=== PATIENT | male | born 1980 | race Caucasian/White ===

== ENCOUNTER 2016-09-28 16:23 | Emergency (ER) | payer OTHER ==
[2016-09-28 16:39] VITALS: BP 161/83; PULSE 88; RESP 20; TEMP 98.5
--- NOTE | 2016-09-28 17:08 | ED ---
Skin/Abscess/FB HPI - General Chief complaint: Skin/Abscess/Foreign Body Stated complaint: Lump on Left Leg Time Seen by Provider: 09/28/16 16:55 Source: patient, RN notes reviewed Mode of arrival: ambulatory Limitations: no limitations - History of Present Illness Initial comments: 35-year-old male presents emergency department chief complaint of lesion to the left back. Patient noticed a area of a lump to the left buttock area. Patient states he had it for the last week or so. Patient states his doctor placed him on Keflex and did not improve warm. Patient states is not tender is notredness. Patient seen changes in bowel or bladder habits. Patient states she was concerned due to the above results that he should be evaluated.Patient denies any recent fever, chills, shortness of breath, chest pain, back pain, abdominal pain, nausea vomiting, numbness or tingling, dysuria or hematuria, constipation or diarrhea, headaches or visual changes, or any other current symptoms. - Related Data Previous Rx's Medication Instructions Recorded Meclizine [Antivert] 25 mg PO TID #15 tab 04/21/15 Allergies Allergy/AdvReac Type Severity Reaction Status Date / Time codeine Allergy Rash/Hives Verified 09/28/16 16:39 Review of Systems ROS Statement: Those systems with pertinent positive or pertinent negative responses have been documented in the HPI. ROS Other: All systems not noted in ROS Statement are negative. Past Medical History Past Medical History: No Reported History History of Any Multi-Drug Resistant Organisms: None Reported Past Surgical History: No Surgical Hx Reported Past Psychological History: No Psychological Hx Reported Smoking Status: Current every day smoker Past Alcohol Use History: Occasional Past Drug Use History: None Reported General Exam Limitations: no limitations General appearance: alert, in no apparent distress Head exam: Present: atraumatic, normocephalic, normal inspection ENT exam: Present: normal exam, mucous membranes moist Neck exam: Present: normal inspection. Absent: tenderness, meningismus, lymphadenopathy Respiratory exam: Present: normal lung sounds bilaterally. Absent: respiratory distress, wheezes, rales, rhonchi, stridor Cardiovascular Exam: Present: regular rate, normal rhythm, normal heart sounds. Absent: systolic murmur, diastolic murmur, rubs, gallop, clicks GI/Abdominal exam: Present: soft, normal bowel sounds. Absent: distended, tenderness, guarding, rebound, rigid Extremities exam: Present: normal inspection, full ROM, normal capillary refill , other (There is no palpable mass left buttock that is in minimal in nature). Absent: tenderness, pedal edema, joint swelling, calf tenderness Back exam: Present: normal inspection Neurological exam: Present: alert, oriented X3 Psychiatric exam: Present: normal affect, normal mood Skin exam: Present: warm, dry, intact, normal color. Absent: rash Course Vital Signs 09/28/16 16:37 Temperature 98.5 F Pulse Rate 88 Respiratory 20 Rate Blood Pressure 161/83 O2 Sat by Pulse 98 Oximetry Medical Decision Making - Medical Decision Making 35-year-old male presents emergency department with a chief complaint of concern for lesion of the left buttock. At this time ultrasound shows that it is a lymph node. This time we discussed continuing to just follow-up. We discussed he can take Motrin 4. We did discuss return All patient's questions. He stated he understood and is intermittent plan. He will be discharged. Disposition Clinical Impression: Lymph node symptom Disposition: HOME SELF-CARE Condition: Stable Instructions: Lymphadenopathy (ED) Additional Instructions: Please use medication as discussed. Please follow up with family doctor if symptoms have not improved over the next two days. Please return to the emergency room if your symptoms increase or worsen or for any other concerns. Referrals: Manda Gordillo MD [Primary Care Provider] - 1-2 days Time of Disposition: 17:41
--- NOTE | 2016-09-28 17:37 | US ---
EXAMINATION TYPE: US extremity nonvasc complt LT DATE OF EXAM: 09/28/2016 5:23 PM COMPARISON: NONE CLINICAL HISTORY: Pain. Palpable area left lower buttock x 1 month Scanned patient's palpable area: 1.4 x 0.6 x 1.9cm hypoechoic vascular area, possible lymph node IMPRESSION: There is a oval-shaped subcutaneous mass that has sonographic features suggestive of ord inary lymph node.
== END 2016-09-28 17:51 | disposition home or self-care (01) ==
LOC: EC 16:23
DX: I89.9 Noninfective disorder of lymphatic vessels and lymph nodes, unspecified (principal); R22.42 Localized swelling, mass and lump, left lower limb; F17.200 Nicotine dependence, unspecified, uncomplicated; Z88.5 Allergy status to narcotic agent
CPT/HCPCS: 99283

== ENCOUNTER 2018-02-01 15:51 | Emergency (ER) | payer OTHER ==
[2018-02-01 15:59] VITALS: RESP 18
--- NOTE | 2018-02-01 16:14 | ED ---
General Adult HPI - General Chief complaint: Urogenital Stated complaint: Male Time Seen by Provider: 02/01/18 16:01 Source: patient, RN notes reviewed Mode of arrival: ambulatory Limitations: no limitations - History of Present Illness Initial comments: Patient is a pleasant 37-year-old male presenting to the emergency department with right testicular swelling. Patient has had symptoms for over a month now. Symptoms are somewhat worse the last day or 2. Patient does have a history of similar symptoms years ago associated with hydrocele. Patient states there is only mild discomfort, specifically more with touch or movement. No trauma. No urethral discharge. No fevers. - Related Data Home Medications Medication Instructions Recorded Confirmed Multivitamins, Thera [Multivitamin 1 tab PO DAILY 02/01/18 02/01/18 (formulary)] Allergies Allergy/AdvReac Type Severity Reaction Status Date / Time codeine Allergy Itching Verified 02/01/18 16:18 Review of Systems ROS Statement: Those systems with pertinent positive or pertinent negative responses have been documented in the HPI. ROS Other: All systems not noted in ROS Statement are negative. Constitutional: Denies: fever Eyes: Denies: eye pain ENT: Denies: ear pain Respiratory: Denies: dyspnea Cardiovascular: Denies: chest pain Endocrine: Denies: fatigue Gastrointestinal: Denies: abdominal pain Genitourinary: Reports: as per HPI, other (Testicular swelling). Denies: urgency, dysuria, discharge Skin: Denies: rash Neurological: Denies: headache Past Medical History Past Medical History: No Reported History Additional Past Medical History / Comment(s): vertigo History of Any Multi-Drug Resistant Organisms: None Reported Past Surgical History: No Surgical Hx Reported Past Psychological History: No Psychological Hx Reported Smoking Status: Current every day smoker Past Alcohol Use History: Occasional Past Drug Use History: None Reported General Exam Limitations: no limitations General appearance: alert, in no apparent distress Head exam: Present: atraumatic Neck exam: Present: normal inspection Respiratory exam: Present: normal lung sounds bilaterally Cardiovascular Exam: Present: regular rate, normal rhythm GI/Abdominal exam: Present: soft. Absent: tenderness exam: Present: scrotal swelling (Right testicular). Absent: testicular tenderness, urethral discharge Extremities exam: Present: normal inspection Neurological exam: Present: alert Psychiatric exam: Present: normal affect, normal mood Skin exam: Present: normal color. Absent: rash Course Vital Signs 02/01/18 15:54 Temperature 98.3 F Pulse Rate 92 Respiratory 18 Rate Blood Pressure 128/89 O2 Sat by Pulse 98 Oximetry Medical Decision Making - Medical Decision Making Patient reevaluated and resting comfortably in bed. Patient updated on results and need for follow-up. - Radiology Data Radiology results: report reviewed (Ultrasound shows large bilateral hydrocele, more on the right side) Disposition Clinical Impression: Hydrocele Disposition: HOME SELF-CARE Condition: Stable Instructions: Hydrocele (ED), Testicle Pain (ED) Additional Instructions: Please follow-up with primary care physician and urology in the next couple days for recheck. Return for fever, increased pain, swelling, redness, worsening symptoms or other concerns. Subp-kio-[id number] ibuprofen as needed. Scrotal support. Is patient prescribed a controlled substance at d/c from ED?: No Referrals: Luis M Ny MD [STAFF PHYSICIAN] - 1-2 days Grace Barnes III, MD [STAFF PHYSICIAN] - 1-2 days Time of Disposition: 17:43
--- NOTE | 2018-02-01 17:27 | US ---
EXAMINATION TYPE: US scrotum with doppler. Grayscale and color Doppler Duplex imaging performed of triny angel scrotum. DATE OF EXAM: 02/01/2018 COMPARISON: NONE CLINICAL HISTORY: Pain. EXAM MEASUREMENTS: TESTICLES: Right Testicle: 4.1 x 2.9 x 2.7 cm Left Testicle: 4.0 x 2.8 x 2.7 cm EPIDIDYMIS HEAD: Right Epididymis: 0.8 cm Left Epididymis: 0.9 cm Doppler performed to assess for testicular vascularity; good bilateral color flow and waveforms are s een. There is no evidence of testicular torsion. Presence of hydroceles: Large bilateral hydroceles right measures 8.1 x 3.5 x 5.0, left measures 7.8 x 2.9 x3.6cm Presence of varicoceles: ?mild dilation on left IMPRESSION: No testicular torsion or mass. Large bilateral hydroceles.
[2018-02-01 17:59] VITALS: BP 145/85; PULSE 75; TEMP 98.8
== END 2018-02-01 17:45 | disposition home or self-care (01) ==
LOC: EC 15:51
DX: N43.3 Hydrocele, unspecified (principal); F17.200 Nicotine dependence, unspecified, uncomplicated; Z88.5 Allergy status to narcotic agent
CPT/HCPCS: 76870; 93975; 99284

== ENCOUNTER → 2018-09-09 | Outpatient (CLI) | payer BC ==
--- NOTE | 2018-09-09 08:46 | US ---
EXAMINATION TYPE: US abdomen complete DATE OF EXAM: 09/09/2018 COMPARISON: NONE CLINICAL HISTORY: K21.9 Gastro-esophageal reflux disease without es. epigastric pain EXAM MEASUREMENTS: Liver Length: 14.5 cm Gallbladder Wall: 0.3 cm CBD: 0.4 cm Spleen: 11.4 cm Right Kidney: 9.4 x 5.2 x 5.2 cm Left Kidney: 10.4 x 4.9 x 5.5 cm Pancreas: not seen due to bowel gas Liver: left lobe obscured by bowel gas Gallbladder: wnl Evidence for sonographic Ugalde's sign: no CBD: wnl Spleen: wnl Right Kidney: wnl Left Kidney: wnl Upper IVC: wnl Abd Aorta: wnl The liver is homogenous. The intrahepatic portion of the IVC and proximal abdominal aorta are within normal limits. There is no evidence of cholelithiasis. Common bile duct is unremarkable. The visu alized portions of the pancreas are homogenous. The spleen is unremarkable. Kidneys are symmetric a nd free of hydronephrosis. No renal lesions are seen. IMPRESSION: 1. No distinct abnormality seen.
== END | disposition home or self-care (01) ==
LOC: RADUSWWP 08:15
PROVIDERS: ATTEND Family Medicine
DX: K21.9 Gastro-esophageal reflux disease without esophagitis (principal)
CPT/HCPCS: 76700

== ENCOUNTER 2019-06-26 16:07 | Emergency (ER) | payer BC ==
[2019-06-26 16:32] VITALS: BP 116/77; PULSE 85; RESP 18; TEMP 98.2
[2019-06-26] MEDS ORDERED: MAG HYDROX/AL HYDROX/SIMETH 30 ML, HYOSCYAMINE ELIXIR 10 ML, LIDOCAINE VISCOUS 2% 10 ML PO STA ×3 (17:15)
[2019-06-26] MEDS ORDERED: PANTOPRAZOLE 40 MG/10 ML VIAL IVP STA (17:15)
[2019-06-26 17:36] LABS: Basophils % (A) 1 %; Eosinophils # (A) 0.2 k/uL (0-0.7); Eosinophils % (A) 2 %; HCT 42.4 % (39.0-53.0); Lymphocytes % (A) 24 %; MCH 28.2 pg (25.0-35.0); MCHC 32.9 g/dL (31.0-37.0); MCV 85.6 fL (80.0-100.0); Mean Platelet Volume 7.4; Monocytes # (A) 0.4 k/uL (0-1.0); Monocytes % (A) 5 %; Neutrophils # (A) 5.4 k/uL (1.3-7.7); Neutrophils % (A) 66 %; Platelet Count 303 k/uL (150-450); RBC 4.96 m/uL (4.30-5.90); RDW 12.7 % (11.5-15.5); WBC 8.1 k/uL (3.8-10.6)
[2019-06-26 17:45] LABS: ALT 40 U/L (4-49); AST 29 U/L (17-59); African American GFR (CKD) >90 (>60 ml/min/1.73 sqM); Albumin 4.4 g/dL (3.5-5.0); Alkaline Phosphatase 61 U/L (38-126); Amylase 55 U/L (30-110); Anion Gap 10 mmol/L; Blood Urea Nitrogen 11 mg/dL (9-20); Calcium 9.4 mg/dL (8.4-10.2); Carbon Dioxide 25 mmol/L (22-30); Chloride 103 mmol/L (98-107); Glucose 87 mg/dL (74-99); Non-African American GFR(CKD) >90 (>60 ml/min/1.73 sqM); Potassium 4.1 mmol/L (3.5-5.1); Sodium 138 mmol/L (137-145); Total Bilirubin 0.5 mg/dL (0.2-1.3); Total Protein 7.2 g/dL (6.3-8.2)
--- NOTE | 2019-06-26 18:07 | XR ---
EXAMINATION TYPE: XR abdomen acute w cxr DATE OF EXAM: 06/26/2019 COMPARISON: NONE HISTORY: Epigastric pain TECHNIQUE: 4 views FINDINGS: Chest: Lungs are clear and well-expanded. Pleural spaces are negative. Cardiopericardial silhouette i s unremarkable. Bones and soft tissues are negative for acute findings. Abdomen and pelvis: There is no evidence for pneumoperitoneum. The bowel gas pattern is unremarkable as there is air throughout nondilated small and large bowel. No sizeable air fluid levels. No mass ef fects are seen. No unusual calcifications. IMPRESSION: No acute radiographic process.
--- NOTE | 2019-06-26 18:19 | US ---
EXAMINATION TYPE: US abdomen limited DATE OF EXAM: 06/26/2019 COMPARISON: US CLINICAL HISTORY: RUQ/epigastric region. RUQ/epigastric pain x 1 month. Nausea. EXAM MEASUREMENTS: Liver Length: 16.0 cm Gallbladder Wall: 0.33 cm CBD: 0.23 cm Right Kidney: 11.2 x 5.6 x 5.1 cm Limited visualization/assessment due to overlying bowel gas. Pancreas: Not well visualized. Liver: No abnormalities seen at this time. Gallbladder: Folds seen. Appears to be anechoic. Measures 9.1 cm in length. Evidence for sonographic Ugalde's sign: No CBD: Appears wnl Right Kidney: No hydronephrosis or masses seen IMPRESSION: No acute process.
--- NOTE | 2019-06-26 18:41 | ED ---
Abdominal Pain HPI - General Chief Complaint: Abdominal Pain Stated Complaint: Abd pain Time Seen by Provider: 06/26/19 16:35 Source: patient Mode of arrival: ambulatory Limitations: no limitations - History of Present Illness Initial Comments: 38-year-old male presenting for epigastric pain times months. Patient states his pain epigastric region was predecidual due to peptic ulcer. Patient states that today it was gnawing slightly more than usual however he denies a similar onset of severe abdominal pain. Patient states that is seems be getting better and also seems to improve with eating food. Patient denies any vomiting diarrhea melena hematochezia hematemesis. Patient states he is not currently on any antacid medications. Patient denies fever, lower abdominal pain, chest pain or pressure, denies SOB, denies back pain. Remaining ROS (-). upon arrival patient appears well there is no signs of acute distress. MD Complaint: abdominal pain - Related Data Home Medications Medication Instructions Recorded Confirmed Multivitamins, Thera [Multivitamin 1 tab PO DAILY 02/01/18 02/01/18 (formulary)] Previous Rx's Medication Instructions Recorded Pantoprazole Sodium [Protonix] 20 mg PO 14 #14 tablet. 06/26/19 Allergies Allergy/AdvReac Type Severity Reaction Status Date / Time codeine Allergy Itching Verified 06/26/19 16:32 Review of Systems ROS Statement: Those systems with pertinent positive or pertinent negative responses have been documented in the HPI. ROS Other: All systems not noted in ROS Statement are negative. Past Medical History Past Medical History: No Reported History Additional Past Medical History / Comment(s): vertigo History of Any Multi-Drug Resistant Organisms: None Reported Past Surgical History: No Surgical Hx Reported Past Psychological History: No Psychological Hx Reported Smoking Status: Former smoker Past Alcohol Use History: Occasional Past Drug Use History: None Reported General Exam - General Exam Comments Initial Comments: General: The patient is awake and alert, in no distress, and does not appear acutely ill. Eye: +3 mm pupils are equal, round and reactive to light, extra-ocular movements are intact. No nystagmus. There is normal conjunctiva bilaterally. No signs of icterus. Ears, nose, mouth and throat: There are moist mucous membranes and no oral lesions. Neck: The neck is supple, there is no tenderness or JVD. Cardiovascular: There is a regular rate and rhythm. No murmur, rub or gallop is appreciated. Respiratory: Lungs are clear to auscultation, respirations are non-labored, breath sounds are equal. No wheezes, stridor, rales, or rhonchi. Gastrointestinal: Soft, non-distended, tenderness to the epigastric region of the abdomen mild, remaining abdomen non tender, no murphys sign without masses or organomegaly noted. There is no rebound or guarding present. Musculoskeletal: Normal ROM, no tenderness. Strength 5/5. Sensation intact. radial pulses equal bilaterally 2+. Neurological: A&O x 3. CN II-XII intact grossly, There are no obvious motor or sensory deficits. Coordination appears grossly intact. Speech is normal. Skin: Skin is warm and dry and no rashes or lesions are noted. Psychiatric: Cooperative, appropriate mood & affect, normal judgment. Limitations: no limitations Course Vital Signs 06/26/19 16:29 Temperature 98.2 F Pulse Rate 85 Respiratory 18 Rate Blood Pressure 116/77 O2 Sat by Pulse 98 Oximetry Medical Decision Making - Medical Decision Making Well appearing 38-year-old male who appears nontoxic on arrival. Patient is mild epigastric pain on examination. No severe pain. Patient's GI cocktail with helped alleviate pain. Patient has no evidence of perforation on acute abdominal series although this was not suspected given patient does not appear to have acute abdomen. Patient's ultrasound revealed no evidence supportive of cholecystitis nor his laboratory studies. Patient has no leukocytosis Hemoccult and stable no history of melena hematochezia patient provided Protonix in the emergency department as well as outpatient prescription at this time feel he stated discharge with outpatient EGD performed by GI for further evaluation. Recommended decrease of NSAIDs, alcohol, spicy foods and return for increasing pain, or rectal bleeding--patient verbalized understanding was discharged appearing well after discussing case with Dr schrader Ventricular rate 60 bpm, VA interval 142 ms, QRS or she may be 2 ms, QT/QTC 376/ 399 ms. This is normal sinus rhythm there is no ST elevation or depression. Normal R-wave progression with no acute findings. - Lab Data Result diagrams: 06/26/19 17:14 06/26/19 17:14 Lab Results 06/26/19 06/26/19 06/26/19 Range/Units 17:14 17:14 17:14 WBC 8.1 (3.8-10.6) k/uL RBC 4.96 (4.30-5.90) m/uL Hgb 14.0 (13.0-17.5) gm/dL Hct 42.4 (39.0-53.0) % MCV 85.6 (80.0-100.0) fL MCH 28.2 (25.0-35.0) pg MCHC 32.9 (31.0-37.0) g/dL RDW 12.7 (11.5-15.5) % Plt Count 303 (150-450) k/uL Neutrophils % 66 % Lymphocytes % 24 % Monocytes % 5 % Eosinophils % 2 % Basophils % 1 % Neutrophils # 5.4 (1.3-7.7) k/uL Lymphocytes # 2.0 (1.0-4.8) k/uL Monocytes # 0.4 (0-1.0) k/uL Eosinophils # 0.2 (0-0.7) k/uL Basophils # 0.0 (0-0.2) k/uL Sodium 138 (137-145) mmol/L Potassium 4.1 (3.5-5.1) mmol/L Chloride 103 (98-107) mmol/L Carbon Dioxide 25 (22-30) mmol/L Anion Gap 10 mmol/L BUN 11 (9-20) mg/dL Creatinine 0.84 (0.66-1.25) mg/dL Est GFR (CKD-EPI)AfAm >90 (>60 ml/min/1.73 sqM) Est GFR (CKD-EPI)NonAf >90 (>60 ml/min/1.73 sqM) Glucose 87 (74-99) mg/dL Calcium 9.4 (8.4-10.2) mg/dL Total Bilirubin 0.5 (0.2-1.3) mg/dL AST 29 (17-59) U/L ALT 40 (4-49) U/L Alkaline Phosphatase 61 (38-126) U/L Troponin I <0.012 (0.000-0.034) ng/mL Total Protein 7.2 (6.3-8.2) g/dL Albumin 4.4 (3.5-5.0) g/dL Amylase 55 (30-110) U/L Lipase 163 (23-300) U/L Disposition Clinical Impression: Epigastric pain Disposition: HOME SELF-CARE Condition: Good Instructions (If sedation given, give patient instructions): Peptic Ulcer (ED), Epigastric Pain (ED) Additional Instructions: Please use medication as discussed. Please follow-up with family doctor in the next 2 days, as well as GI in the next week. Please return to emergency room if the symptoms increase or worsen or for any other concerns. Prescriptions: Pantoprazole Sodium [Protonix] 20 mg PO 14 #14 tablet.dr Is patient prescribed a controlled substance at d/c from ED?: No Referrals: Manda Gordillo MD [Primary Care Provider] - 1-2 days Lynn Craig MD [STAFF PHYSICIAN] - 1-2 days Time of Disposition: 18:44
== END 2019-06-26 18:54 | disposition home or self-care (01) ==
LOC: EC 16:07
DX: R10.13 Epigastric pain (principal); Z87.891 Personal history of nicotine dependence; Z88.5 Allergy status to narcotic agent; Z79.899 Other long term (current) drug therapy
CPT/HCPCS: 36415; 93005; 80053; 82150; 83690; 84484; 85025; 74022; 76705; 99284; 96374; C9113

== ENCOUNTER 2020-05-13 10:49 | Emergency (ER) | payer BC, MEDICAID ==
--- NOTE | 2020-05-13 11:06 | ED ---
Abdominal Pain HPI - General Chief Complaint: Abdominal Pain Stated Complaint: abd pain Time Seen by Provider: 05/13/20 10:56 Source: patient Mode of arrival: ambulatory Limitations: no limitations - History of Present Illness Initial Comments: 39yo male presenting for chief complaint of midline to left lower abdominal pain. Patient states that for the past 2 days he has had left lower quadrant/midline lower abdominal pain. He states it is sharp in nature and fluctuating in intensity. He denies any radiation to the back he denies any nausea vomiting diarrhea fevers upper abdominal pain black tarry stools he denies any bloody stools. He states he has history of hydrocele he denies any worsening he states this has been ongoing for a year. He denies any groin pain. Patient denies any additional complaints and upon arrival he appears anxious but in no acute distress. - Related Data Home Medications Medication Instructions Recorded Confirmed Acetaminophen Tab [Tylenol Tab] 500 mg PO Q6HR PRN 05/13/20 05/13/20 Melatonin 3 mg PO HS 05/13/20 05/13/20 Previous Rx's Medication Instructions Recorded Amoxic-Pot Clav 875-125Mg 1 tab PO Q12HR 10 Days #20 tab 05/13/20 [Augmentin 875-125] Allergies Allergy/AdvReac Type Severity Reaction Status Date / Time codeine Allergy Itching Verified 05/13/20 11:27 Review of Systems ROS Statement: Those systems with pertinent positive or pertinent negative responses have been documented in the HPI. ROS Other: All systems not noted in ROS Statement are negative. Past Medical History Past Medical History: No Reported History Additional Past Medical History / Comment(s): vertigo History of Any Multi-Drug Resistant Organisms: None Reported Past Surgical History: No Surgical Hx Reported Past Psychological History: No Psychological Hx Reported Smoking Status: Current every day smoker Past Alcohol Use History: Occasional Past Drug Use History: None Reported General Exam - General Exam Comments Initial Comments: General: The patient is awake and alert, in no distress, and does not appear acutely ill. Eye: Pupils are equal, round and reactive to light, extra-ocular movements are intact. No nystagmus. There is normal conjunctiva bilaterally. No signs of icterus. Cardiovascular: There is a regular rate and rhythm. No murmur, rub or gallop is appreciated. Respiratory: Lungs are clear to auscultation, respirations are non-labored, breath sounds are equal. No wheezes, stridor, rales, or rhonchi. Gastrointestinal: Soft, non-distended, LLQ tenderness to palpation of the abdomen, abdomen without masses or organomegaly noted. There is no rebound or guarding present. Musculoskeletal: Normal ROM, no tenderness. Strength 5/5. Sensation intact. Radial pulses equal bilaterally 2+. Neurological: A&O x 3. CN II-XII intact grossly, There are no obvious motor or sensory deficits. Coordination appears grossly intact. Speech is normal. Skin: Skin is warm and dry and no rashes or lesions are noted. Psychiatric: Cooperative, appropriate mood & affect, normal judgment. Limitations: no limitations Course Vital Signs 05/13/20 05/13/20 10:50 12:40 Temperature 98.7 F 98.4 F Pulse Rate 118 H 95 Respiratory 18 16 Rate Blood Pressure 147/103 139/92 O2 Sat by Pulse 98 98 Oximetry Medical Decision Making - Medical Decision Making CT reveals a mild-moderate diverticulitis without abscess, no free air. pt has some bowel well edema. pt has leukocytosis. no fevers. VS improved throughout visit. pt appeared anxious on arrival he states he was worried about cancer. pt would like to trial outpatient oral antibiotics with return parameters. i discussed complications such as perforation and abscess and recommended return for increasing/persistent pain, development of fever. pt discharged appearing well after discussing case with . - Lab Data Result diagrams: 05/13/20 11:11 05/13/20 11:11 Lab Results 05/13/20 05/13/20 05/13/20 Range/Units 11:11 11:11 11:11 WBC 15.5 H (3.8-10.6) k/uL RBC 5.42 (4.30-5.90) m/uL Hgb 15.6 (13.0-17.5) gm/dL Hct 47.3 (39.0-53.0) % MCV 87.3 (80.0-100.0) fL MCH 28.8 (25.0-35.0) pg MCHC 33.0 (31.0-37.0) g/dL RDW 13.3 (11.5-15.5) % Plt Count 260 (150-450) k/uL MPV 7.8 Neutrophils % 76 % Lymphocytes % 15 % Monocytes % 6 % Eosinophils % 2 % Basophils % 0 % Neutrophils # 11.8 H (1.3-7.7) k/uL Lymphocytes # 2.3 (1.0-4.8) k/uL Monocytes # 0.9 (0-1.0) k/uL Eosinophils # 0.4 (0-0.7) k/uL Basophils # 0.1 (0-0.2) k/uL Sodium 137 (137-145) mmol/L Potassium 4.0 (3.5-5.1) mmol/L Chloride 105 (98-107) mmol/L Carbon Dioxide 24 (22-30) mmol/L Anion Gap 8 mmol/L BUN 18 (9-20) mg/dL Creatinine 0.84 (0.66-1.25) mg/dL Est GFR (CKD-EPI)AfAm >90 (>60 ml/min/1.73 sqM) Est GFR (CKD-EPI)NonAf >90 (>60 ml/min/1.73 sqM) Glucose 109 H (74-99) mg/dL Plasma Lactic Acid Estuardo (0.7-2.0) mmol/L Calcium 9.5 (8.4-10.2) mg/dL Total Bilirubin 0.8 (0.2-1.3) mg/dL AST 23 (17-59) U/L ALT 34 (4-49) U/L Alkaline Phosphatase 55 (38-126) U/L Total Protein 7.4 (6.3-8.2) g/dL Albumin 4.4 (3.5-5.0) g/dL Amylase 61 (30-110) U/L Lipase 115 (23-300) U/L Urine Color Yellow Urine Appearance Clear (Clear) Urine pH 5.5 (5.0-8.0) Ur Specific Girard 1.029 (1.001-1.035) Urine Protein Trace H (Negative) Urine Glucose (UA) Negative (Negative) Urine Ketones Negative (Negative) Urine Blood Negative (Negative) Urine Nitrite Negative (Negative) Urine Bilirubin Negative (Negative) Urine Urobilinogen <2.0 (<2.0) mg/dL Ur Leukocyte Esterase Negative (Negative) 05/13/20 Range/Units 11:11 WBC (3.8-10.6) k/uL RBC (4.30-5.90) m/uL Hgb (13.0-17.5) gm/dL Hct (39.0-53.0) % MCV (80.0-100.0) fL MCH (25.0-35.0) pg MCHC (31.0-37.0) g/dL RDW (11.5-15.5) % Plt Count (150-450) k/uL MPV Neutrophils % % Lymphocytes % % Monocytes % % Eosinophils % % Basophils % % Neutrophils # (1.3-7.7) k/uL Lymphocytes # (1.0-4.8) k/uL Monocytes # (0-1.0) k/uL Eosinophils # (0-0.7) k/uL Basophils # (0-0.2) k/uL Sodium (137-145) mmol/L Potassium (3.5-5.1) mmol/L Chloride (98-107) mmol/L Carbon Dioxide (22-30) mmol/L Anion Gap mmol/L BUN (9-20) mg/dL Creatinine (0.66-1.25) mg/dL Est GFR (CKD-EPI)AfAm (>60 ml/min/1.73 sqM) Est GFR (CKD-EPI)NonAf (>60 ml/min/1.73 sqM) Glucose (74-99) mg/dL Plasma Lactic Acid Estuardo 0.8 (0.7-2.0) mmol/L Calcium (8.4-10.2) mg/dL Total Bilirubin (0.2-1.3) mg/dL AST (17-59) U/L ALT (4-49) U/L Alkaline Phosphatase (38-126) U/L Total Protein (6.3-8.2) g/dL Albumin (3.5-5.0) g/dL Amylase (30-110) U/L Lipase (23-300) U/L Urine Color Urine Appearance (Clear) Urine pH (5.0-8.0) Ur Specific Girard (1.001-1.035) Urine Protein (Negative) Urine Glucose (UA) (Negative) Urine Ketones (Negative) Urine Blood (Negative) Urine Nitrite (Negative) Urine Bilirubin (Negative) Urine Urobilinogen (<2.0) mg/dL Ur Leukocyte Esterase (Negative) Disposition Clinical Impression: Diverticulitis, Abdominal pain, Hydrocele Disposition: HOME SELF-CARE Condition: Good Additional Instructions: Please use medication as discussed. Please follow-up with family doctor in the next 2 days, Dr Craig in next 2-3 days and urology for the hydrocele- Dr. Ny. Please return to emergency room if the symptoms increase or worsen or for any o ther concerns. Prescriptions: Amoxic-Pot Clav 875-125Mg [Augmentin 875-125] 1 tab PO Q12HR 10 Days #20 tab Is patient prescribed a controlled substance at d/c from ED?: No Referrals: None,Stated [Primary Care Provider] - 1-2 days Luis M Ny MD [STAFF PHYSICIAN] - 1-2 days Lynn Craig MD [STAFF PHYSICIAN] - 1-2 days
[2020-05-13 11:24] LABS: Basophils # (A) 0.1 k/uL (0-0.2); Basophils % (A) 0 %; Eosinophils # (A) 0.4 k/uL (0-0.7); Eosinophils % (A) 2 %; HCT 47.3 % (39.0-53.0); HGB 15.6 gm/dL (13.0-17.5); Lymphocytes # (A) 2.3 k/uL (1.0-4.8); Lymphocytes % (A) 15 %; MCH 28.8 pg (25.0-35.0); MCV 87.3 fL (80.0-100.0); Mean Platelet Volume 7.8; Monocytes # (A) 0.9 k/uL (0-1.0); Monocytes % (A) 6 %; Neutrophils # (A) 11.8 k/uL (1.3-7.7); Neutrophils % (A) 76 %; Platelet Count 260 k/uL (150-450); RBC 5.42 m/uL (4.30-5.90); RDW 13.3 % (11.5-15.5); WBC 15.5 k/uL (3.8-10.6)
[2020-05-13 11:25] LABS: Appearance,Urine Clear (Clear); Bilirubin,Urine Negative (Negative); Blood,Urine Negative (Negative); Color,Urine Yellow; Glucose,Urine (UA) Negative (Negative); Ketones,Urine Negative (Negative); Leukocyte Esterase,Urine Negative (Negative); Nitrite,Urine Negative (Negative); PH, Urine 5.5 (5.0-8.0); Protein,Urine Trace (Negative); Specific Gravity,Urine 1.029 (1.001-1.035); Urobilinogen,Urine <2.0 mg/dL (<2.0)
[2020-05-13 11:33] LABS: ALT 34 U/L (4-49); AST 23 U/L (17-59); African American GFR (CKD) >90 (>60 ml/min/1.73 sqM); Albumin 4.4 g/dL (3.5-5.0); Alkaline Phosphatase 55 U/L (38-126); Amylase 61 U/L (30-110); Anion Gap 8 mmol/L; Blood Urea Nitrogen 18 mg/dL (9-20); Calcium 9.5 mg/dL (8.4-10.2); Carbon Dioxide 24 mmol/L (22-30); Chloride 105 mmol/L (98-107); Glucose 109 mg/dL (74-99); Lipase 115 U/L (23-300); Non-African American GFR(CKD) >90 (>60 ml/min/1.73 sqM); Sodium 137 mmol/L (137-145); Total Bilirubin 0.8 mg/dL (0.2-1.3); Total Protein 7.4 g/dL (6.3-8.2)
--- NOTE | 2020-05-13 12:15 | CT ---
EXAMINATION TYPE: CT abdomen pelvis w con DATE OF EXAM: 05/13/2020 COMPARISON: NONE HISTORY: 39-year-old male LLQ pain, diverticulitis vs stone TECHNIQUE: Contiguous axial scanning of the abdomen and pelvis following administration of 100 ml Iso lisset 300 IV contrast. Delayed images through the kidneys and coronal/sagittal reconstructions perform ed. CT DLP: 1791.7 mGycm Automated exposure control for dose reduction was used. FINDINGS: Heart normal size without pericardial effusion. Lung bases clear without pleural effusion. Tiny hiatal hernia. Liver mildly enlarged to 18.1 cm. Suspect mild fatty infiltration. Otherwise, no focal liver lesion o r biliary ductal dilatation. Portal venous system is patent. Gallbladder, adrenal glands, kidneys, spleen, and pancreas appear within normal limits. No dilated small bowel, free fluid, or free air. No mesenteric or retroperitoneal lymphadenopathy. Normal appendix. Minimal scattered stool. Diverticular change in the proximal to mid sigmoid colon. There is moderate edematous wall thickening along the proximal sigmoid colon with moderate surrounding inflammatory fat stranding and minimal ed silke tracking into the pelvis. Mild wall thickening extends to the mid sigmoid colon. There is some hy podense regions along the thickened wall of the colon. Bladder incompletely distended. Central prostatic calcifications. Prostate gland measures 4.0 cm wide . There appear to be significant bilateral hydroceles. These should be correlated clinically. No pelv ic lymphadenopathy. Bones: No osseous destructive process. Mild degenerative disc disease lower thoracic spine. IMPRESSION: 1. EXAM POSITIVE FOR ACUTE DIVERTICULITIS OF THE PROXIMAL SIGMOID COLON WITH MODERATE ASSOCIATED INFL AMMATION. NO FREE AIR. THERE ARE SMALL HYPODENSE AREAS LOCATED WITHIN THE INFLAMED WALL OF THE COLON THAT COULD REPRESENT BOWEL WALL EDEMA. IF THE PATIENT DOES NOT IMPROVE AFTER ANTIBIOTICS, FOLLOW-UP C AN BE PERFORMED TO EXCLUDE DEVELOPING INTRAMURAL ABSCESS. DIRECT VISUALIZATION AFTER SUCCESSFUL TREAT MENT. 2. HEPATOMEGALY (18.1 CM) WITH HEPATIC STEATOSIS. TINY HIATAL HERNIA. 3. THERE APPEAR TO BE SIGNIFICANT BILATERAL SCROTAL HYDROCELES. CORRELATE TO ETIOLOGY.
[2020-05-13] MEDS ORDERED: AMOXIC-POT CLAV 875MG STARTER PACK 2 TAB BTL PO STA (12:29)
[2020-05-13 12:41] VITALS: BP 139/92; PULSE 95; RESP 16; TEMP 98.4
== END 2020-05-13 12:49 | disposition home or self-care (01) ==
LOC: EC 10:49
DX: K57.32 Diverticulitis of large intestine without perforation or abscess without bleeding (principal); N43.3 Hydrocele, unspecified; D72.829 Elevated white blood cell count, unspecified; F17.200 Nicotine dependence, unspecified, uncomplicated; Z79.890 Hormone replacement therapy; Z88.5 Allergy status to narcotic agent
CPT/HCPCS: 51798; 36415; 80053; 82150; 83605; 83690; 85025; 81003; 74177; 99284; Q9967

== ENCOUNTER → 2023-01-22 | Outpatient (CLI) | payer OTHER ==
--- NOTE | 2023-01-22 11:14 | US ---
EXAMINATION TYPE: US scrotum with doppler. Grayscale and color Doppler Duplex imaging performed of triny angel scrotum. DATE OF EXAM: 01/22/2023 COMPARISON: 2018 CLINICAL INDICATION: Male, 42 years old with history of N43.3 HYDROCELE, UNSPECIFIED; hx hydroceles EXAM MEASUREMENTS: TESTICLES: Right Testicle: 4.2 x 2.6 x 3.3 cm Left Testicle: 4.2 x 2.8 x 2.9 cm EPIDIDYMIS HEAD: Right Epididymis: 1.3 x 0.5 x 0.9 cm Left Epididymis: 1.3 x 1.0 x 1.0 cm Doppler performed to assess for testicular vascularity; good bilateral color flow and waveforms are s een. There is no evidence of testicular torsion. Presence of hydroceles: Bilaterally; larger on the left. The right measures grossly 11.6 x 6.3 x 5.9 cm. The left measures grossly 10.7 x 4.9 x 5.8 cm. Presence of varicoceles: NO IMPRESSION: 1. No testicular torsion or intratesticular mass. 2. Bilateral large hydroceles redemonstrated with left greater the right. These are increased from pr ior examination 2018.
== END | disposition home or self-care (01) ==
LOC: RADUSWWP 10:09
PROVIDERS: ATTEND Family Medicine
DX: N43.3 Hydrocele, unspecified (principal)
CPT/HCPCS: 76870; 93975

== ENCOUNTER → 2023-06-01 | Outpatient (CLI) | payer OTHER ==
[2023-06-01 15:41] LABS: Basophils # (A) 0.04 X 10*3/uL (0.00-0.10); Basophils % (A) 0.7 %; Eosinophils # (A) 0.14 X 10*3/uL (0.04-0.35); Eosinophils % (A) 2.4 %; HCT 44.4 % (39.6-50.0); HGB 14.6 g/dL (13.0-17.0); Lymphocytes # (A) 1.82 X 10*3/uL (0.90-5.00); Lymphocytes % (A) 31.5 %; MCH 28.7 pg (27.0-32.0); MCHC 32.9 g/dL (32.0-37.0); MCV 87.4 FL (80.0-97.0); Mean Platelet Volume 10.1 FL (9.5-12.2); Monocytes # (A) 0.44 X 10*3/uL (0.20-1.00); Monocytes % (A) 7.6 %; NRBC Per 100 WBC 0 X 10*3/uL (0.00-0.01); Neutrophils # (A) 3.31 X 10*3/uL (1.80-7.70); Neutrophils % (A) 57.5 %; Platelet Count 260 X 10*3/uL (140-440); RBC 5.08 X 10*6/uL (4.40-5.60); RDW 13.1 % (11.5-14.5); WBC 5.77 X 10*3/uL (4.50-10.00)
[2023-06-01 16:18] LABS: BUN/Creat Ratio 13.11 Ratio (12.00-20.00); Blood Urea Nitrogen 11.8 mg/dL (9.0-27.0); Calcium 9.6 mg/dL (8.7-10.3); Carbon Dioxide 26.1 mmol/L (21.6-31.8); Chloride 103 mmol/L (96-109); Glucose 111 mg/dL (70-110); Potassium 4.3 mmol/L (3.5-5.5); Sodium 139 mmol/L (135-145)
== END | disposition home or self-care (01) ==
LOC: LABWHC1 09:50
PROVIDERS: ATTEND Urology
DX: N43.3 Hydrocele, unspecified (principal)
CPT/HCPCS: 36415; 80048; 85025

== ENCOUNTER → 2023-08-06 | Outpatient (CLI) | payer OTHER ==
[2023-08-06 11:57] LABS: Basophils # (A) 0.07 X 10*3/uL (0.00-0.10); Eosinophils # (A) 0.16 X 10*3/uL (0.04-0.35); Eosinophils % (A) 2.2 %; HCT 46.1 % (39.6-50.0); HGB 14.8 g/dL (13.0-17.0); Lymphocytes # (A) 2.69 X 10*3/uL (0.90-5.00); Lymphocytes % (A) 37.8 %; MCHC 32.1 g/dL (32.0-37.0); MCV 90.4 FL (80.0-97.0); Monocytes # (A) 0.54 X 10*3/uL (0.20-1.00); Monocytes % (A) 7.6 %; NRBC Per 100 WBC 0 X 10*3/uL (0.00-0.01); Neutrophils # (A) 3.64 X 10*3/uL (1.80-7.70); Neutrophils % (A) 51.1 %; Platelet Count 318 X 10*3/uL (140-440); RDW 12.8 % (11.5-14.5); WBC 7.12 X 10*3/uL (4.50-10.00)
[2023-08-06 12:08] LABS: BUN/Creat Ratio 12.11 Ratio (12.00-20.00); Blood Urea Nitrogen 10.9 mg/dL (9.0-27.0); Carbon Dioxide 26.3 mmol/L (21.6-31.8); Chloride 104 mmol/L (96-109); Glucose 106 mg/dL (70-110); Potassium 4.7 mmol/L (3.5-5.5); Sodium 141 mmol/L (135-145)
== END | disposition home or self-care (01) ==
LOC: LABWHC1 07:04
PROVIDERS: ATTEND Urology
DX: N43.3 Hydrocele, unspecified (principal)
CPT/HCPCS: 36415; 80048; 85025